=== PATIENT | male | born 1955 | race Hispanic/Latino ===

== ENCOUNTER 2016-07-22 13:58 | Outpatient (CLI) | payer OTHER ==
[2016-07-22] MEDS ORDERED: PROVENTIL IH ONE (14:02)
== END 2016-07-22 13:59 | disposition home or self-care (01) ==
LOC: PF 13:58
PROVIDERS: ATTEND Internal Medicine
DX: J44.9 Chronic obstructive pulmonary disease, unspecified (principal); I10 Essential (primary) hypertension; I25.10 Atherosclerotic heart disease of native coronary artery without angina pectoris; F32.9 Major depressive disorder, single episode, unspecified; F41.9 Anxiety disorder, unspecified; M79.606 Pain in leg, unspecified; M54.2 Cervicalgia
CPT/HCPCS: 94060; 94640